=== PATIENT | male | born 1975 | race Caucasian/White ===

== ENCOUNTER 2020-06-16 10:03 | Day surgery (SDC) | payer OTHER ==
[2020-06-09 15:35] LABS: BASOPHILS # (AUTO) 0.1 X10'3 (0-0.2); BASOPHILS % (AUTO) 0.5 % (0-1); EOSINOPHILS # (AUTO) 0.4 X10'3 (0-0.9); EOSINOPHILS % (AUTO) 3.2 % (0-6); LYMPHOCYTES # (AUTO) 2.2 X10'3 (1.1-4.8); LYMPHOCYTES % (AUTO) 19.8 % (21-51); MEAN CORPUSCULAR HEMOGLOBIN 29.4 PG (27.0-31.0); MEAN CORPUSCULAR HGB CONC 33.4 g/dL (33.0-36.5); MEAN CORPUSCULAR VOLUME 87.9 FL (78-98); MEAN PLATELET VOLUME 9.2 FL (7.4-10.4); MONOCYTES % (AUTO) 9.1 % (2-12); NEUTROPHILS # (AUTO) 7.6 X10'3 (1.8-7.7); NEUTROPHILS % (AUTO) 67.4 % (42-75); PRE OP HEMATOCRIT 47.4 % (42.0-52.0); PRE OP HEMOGLOBIN 15.8 g/dL (14.0-17.9); PRE OP PLATELET COUNT 335 X10'3 (140-440); RED BLOOD COUNT 5.39 X10'6 (4.70-6.10)
[2020-06-09 15:52] LABS: ALBUMIN 3.8 G/DL (3.4-5.0); ALKALINE PHOSPHATASE 89 IU/L (46-116); BLOOD UREA NITROGEN 16 MG/DL (7-18); BUN/CREATININE RATIO 16.8 (5.4-32.0); CALCIUM 9.1 MG/DL (8.5-10.1); CHLORIDE 105 MMOL/L (99-107); CREATININE 0.95 MG/DL (0.60-1.10); PRE OP ALT 46 U/L (30-65); PRE OP ANION GAP 9 (8-16); PRE OP AST 23 U/L (10-37); PRE OP BILIRUB, TOTAL 0.5 MG/DL (0.0-1.0); PRE OP GLUCOSE 102 MG/DL (70-104); PRE OP SODIUM 140 MMOL/L (135-145); TOTAL CARBON DIOXIDE 25.9 MMOL/L (24-32); TOTAL PROTEIN 7.7 G/DL (6.4-8.2); eGFR 86 ML/MIN
[2020-06-09 16:01] LABS: PRE OP POTASSIUM 3.2 MMOL/L (3.4-5.1)
[~2020-06-16] VITALS: Ht 182.9 cm; Wt 127.4 kg
[2020-06-16] VITALS (8 sets, daily range): BP systolic 93–134; BP diastolic 61–84
[~2020-06-16 10:03] MED LIST: BUPIVAcaine/PF 2.5 mg/ml (0.25%) 30ml vial ONE; INDOCYANINE GREEN 25 MG/10 ML VIAL IV ONE; LIDOcaine 1% 30ml preserv. free vial ONE; NO HOME MEDS; ceFAZolin 2gm in dextrose, iso 50 ML IV ONE; famotidine 20mg tablet PO ONE; ringers solution, lacted 1,000 ML IV SCH
[2020-06-16] MEDS ORDERED: fentaNYL/PF 50MCG/1 ML 2ML syringe ONE ×2 (11:57→12:15)
[2020-06-16] MEDS ORDERED: midazolam 2 mg/2 ml injection ONE (11:58)
[2020-06-16] MEDS ORDERED: rocuronium 10mg/ml inj IV ONE (12:00)
[2020-06-16] MEDS ORDERED: propofol inj 20 ML IV ONE (12:00)
[2020-06-16] MEDS ORDERED: HYDROmorphone/PF 0.2 MG/ML SYRINGE IV PRN ×2 (12:45)
[2020-06-16] MEDS ORDERED: meperidine/PF 25mg/ml syringe IV PRN ×2 (12:45)
[2020-06-16] MEDS ORDERED: ondansetron/PF 4mg/2ml inj IV PRN (12:45)
[2020-06-16] MEDS ORDERED: ringers solution, lacted 1,000 ML IV SCH (12:45)
[2020-06-16] MEDS ORDERED: dexamethasone sod phosphate 4mg/ml inj. ONE (13:09)
[2020-06-16] MEDS ORDERED: ondansetron/PF 4mg/2ml inj ONE (13:09)
[2020-06-16] MEDS ORDERED: glycopyrrolate 0.2mg/ml inj ONE (13:34)
[2020-06-16] MEDS ORDERED: neostigmine methylsulfate 1 MG/ML 10ml vial ONE (13:34)
[2020-06-16] MEDS ORDERED: oxyCODONE/APAP 5-325mg tablet PO PRN ×2 (13:50)
--- NOTE | 2020-06-16 13:50 | NUR ---
Received from OR via BED , accompanied by Anesthesiologist DR DIXON and report given by Anesthesiolgist. PATIENT WAKING UP,DENIES PAIN, V/S WNL, NEUROVASCULAR CHECKS INTACT, 20G PIV LUE, SCD ON, BANDAIDS TO LAP SIGHTS OF ABDOMEN AND STERISTRIPS UNDER THESE CDI.
--- NOTE | 2020-06-16 14:50 | NUR ---
PATIENT A&OX4,DENIES PAIN, V/S WNL, NEUROVASCULAR CHECKS INTACT, 20G PIV LUE D/C, SCD OFF, BANDAIDS TO LAP SIGHTS OF ABDOMEN AND STERISTRIPS UNDER THESE CDI. PATIENT GIVEN SCRIPT FOR PAIN MEDS. . I HAVE REVIEWED D/C INSTRUCTIONS WITH PATIENT AND FAMILY AND THEY HAVE VERBALIZED UNDERSTANDING. PATIENT D/C HOME WITH FAMILY TO TRANSPORT AND ALL BELONGINGS..
== END 2020-06-16 14:50 | disposition home or self-care (01) ==
LOC: PAS 10:03
PROVIDERS: ATTEND Surgery
DX: K80.10 Calculus of gallbladder with chronic cholecystitis without obstruction (principal); K42.9 Umbilical hernia without obstruction or gangrene; E66.9 Obesity, unspecified; Z68.37 Body mass index [BMI] 37.0-37.9, adult; Z87.19 Personal history of other diseases of the digestive system; Z88.5 Allergy status to narcotic agent; Z88.8 Allergy status to other drugs, medicaments and biological substances; Z79.899 Other long term (current) drug therapy; Z20.828 Contact with and (suspected) exposure to other viral communicable diseases
CPT/HCPCS: 36415; 47562; 49585; 80053; 82948; 85025; 87635; 93005; C1781; J1100; J2001; J2250; J2405; J2704; J2710; J3010; J3490; J7120; A4215; A4618; A7000